=== PATIENT | female | born 1990 | race American Indian/Alaskan Native ===

== ENCOUNTER 2017-10-27 20:01 | Emergency (ER) | payer MEDICAID ==
[2017-10-27 21:18] LABS: Basophils % (Auto) 0.3 % (0.0-1.8); Eosinophils % (Auto) 3.6 % (0.0-4.3); Hematocrit 34.1 % (30.3-42.9); Hemoglobin 10.5 gm/dl (10.1-14.3); Mean Corpuscular HGB Conc 31 % (30-34); Platelet Count 281 K/mm3 (140-440); Red Blood Count 5.03 M/mm3 (3.65-5.03); Red Cell Distribution Width 19.6 % (13.2-15.2); White Blood Count 7.3 K/mm3 (4.5-11.0)
[2017-10-27 21:24] LABS: Mean Corpuscular Volume 68 fl (79-97)
[2017-10-27 21:25] LABS: Mean Corpuscular Hemoglobin 21 pg (28-32)
[2017-10-27 21:28] LABS: Anion Gap 15 mmol/L; BUN/Creatinine Ratio 13; Blood Urea Nitrogen 8 mg/dL (7-17); Carbon Dioxide 27 mmol/L (22-30); Chloride 101.9 mmol/L (98-107); Glucose 93 mg/dL (65-100); Potassium 4.3 mmol/L (3.6-5.0); Sodium 140 mmol/L (137-145)
[2017-10-27 21:40] LABS: Bilirubin,Urine NEG (Negative); Blood,Urine NEG (Negative); Ketones,Urine NEG (Negative); Leukocyte Esterase,Urine TR (Negative); Mucus,Urine FEW /HPF; Nitrite,Urine NEG (Negative); Protein,Urine <15 mg/dL mg/dL (Negative); Urobilinogen,Urine < 2.0 mg/dL (<2.0)
--- NOTE | 2017-10-28 00:53 | XRay Report ---
FINAL REPORT EXAM: XR CXR CLINICAL INDICATIONS: CP WHEN COUGHING FINDINGS: Frontal and lateral views the chest were acquired. The heart is mildly large. There is mild prominence of perihilar markings which could represent mild pulmonary edema, viral pneumonitis or bronchitis. There is no consolidative pulmonary infiltrate. There is no pneumothorax. IMPRESSION: CARDIOMEGALY PROMINENT PERIHILAR MARKINGS WHICH COULD REPRESENT PULMONARY EDEMA, VIRAL PNEUMONITIS OR BRONCHITIS
--- NOTE | 2017-10-28 06:41 | Emergency Department Report ---
ED General Adult HPI - General Chief complaint: Chest Pain Stated complaint: COUGH; CP Time Seen by Provider: 10/28/17 06:27 Source: patient Mode of arrival: Ambulatory Limitations: No Limitations - History of Present Illness Initial comments: Patient states "I have a cold". She decided nonproductive cough for the past few days. She does not complain of chest pain. She does not complain of leg pain or swelling. Her cough is nonproductive. She denies fever or chills. She is taking Benadryl for her symptoms. She denies any previous history of cardiac problems hypertension. She's had no recent travel. -: Gradual, days(s) Improves with: none Worsens with: none Associated Symptoms: denies other symptoms Treatments Prior to Arrival: none (patient denies chest pain completely) - Related Data Home Medications Medication Instructions Recorded Confirmed Last Taken Pnv,Calcium 72/Iron/Folic Acid 1 each PO DAILY 06/28/16 06/28/16 07/05/16 09:00 [Preplus Ca-Fe 27 mg-FA 1 mg Tb] Previous Rx's Medication Instructions Recorded Last Taken Type oxyCODONE /ACETAMINOPHEN [Percocet 1 tab PO Q6HR PRN #40 tablet 07/05/16 Unknown Rx 5/325] Docusate Sodium [Colace] 100 mg PO BID PRN #60 capsule 07/07/16 Unknown Rx Ibuprofen [Motrin] 800 mg PO Q8HR PRN #60 tablet 07/07/16 Unknown Rx Azithromycin [Zithromax Z-NOREEN] 250 mg PO DAILY #6 tablet 10/28/17 Unknown Rx Benzonatate [Tessalon Perles] 100 mg PO Q8HR PRN #10 capsule 10/28/17 Unknown Rx Allergies Allergy/AdvReac Type Severity Reaction Status Date / Time No Known Allergies Allergy Verified 05/17/16 20:56 ED Review of Systems ROS: Stated complaint: COUGH; CP Other details as noted in HPI Constitutional: denies: chills, fever Eyes: denies: eye pain, eye discharge, vision change ENT: denies: ear pain, throat pain Respiratory: cough ("I have a cold"). denies: shortness of breath, SOB with exertion (no dyspnea at all), wheezing Cardiovascular: denies: chest pain, palpitations Endocrine: no symptoms reported Gastrointestinal: denies: abdominal pain, nausea, diarrhea Genitourinary: denies: urgency, dysuria, discharge Musculoskeletal: denies: back pain, joint swelling, arthralgia Skin: denies: rash, lesions Neurological: denies: headache, weakness, paresthesias Psychiatric: denies: anxiety, depression Hematological/Lymphatic: denies: easy bleeding, easy bruising ED Past Medical Hx - Past Medical History Previous Medical History?: No Hx Hypertension: No Hx Congestive Heart Failure: No Hx Diabetes: No Hx Deep Vein Thrombosis: No Hx Renal Disease: No Hx Sickle Cell Disease: No Hx Seizures: No Hx Asthma: No Hx COPD: No Hx HIV: No - Surgical History Past Surgical History?: Yes Additional Surgical History: c sect - Social History Smoking Status: Never Smoker Substance Use Type: None - Medications Home Medications: Home Medications Medication Instructions Recorded Confirmed Last Taken Type Pnv,Calcium 72/Iron/Folic Acid 1 each PO DAILY 06/28/16 06/28/16 07/05/16 09:00 History [Preplus Ca-Fe 27 mg-FA 1 mg Tb] oxyCODONE /ACETAMINOPHEN [Percocet 1 tab PO Q6HR PRN #40 tablet 07/05/16 Unknown Rx 5/325] Docusate Sodium [Colace] 100 mg PO BID PRN #60 capsule 07/07/16 Unknown Rx Ibuprofen [Motrin] 800 mg PO Q8HR PRN #60 tablet 07/07/16 Unknown Rx Azithromycin [Zithromax Z-NOREEN] 250 mg PO DAILY #6 tablet 10/28/17 Unknown Rx Benzonatate [Tessalon Perles] 100 mg PO Q8HR PRN #10 capsule 10/28/17 Unknown Rx ED Physical Exam - General Limitations: No Limitations General appearance: alert, in no apparent distress - Head Head exam: Present: atraumatic, normocephalic - Eye Eye exam: Present: normal appearance, PERRL, EOMI. Absent: scleral icterus - ENT ENT exam: Present: mucous membranes moist - Neck Neck exam: Present: normal inspection - Respiratory Respiratory exam: Present: normal lung sounds bilaterally. Absent: respiratory distress - Cardiovascular Cardiovascular Exam: Present: regular rate, normal rhythm. Absent: systolic murmur, diastolic murmur, rubs, gallop - GI/Abdominal GI/Abdominal exam: Present: soft, normal bowel sounds. Absent: distended, tenderness, guarding, rebound - Extremities Exam Extremities exam: Present: normal inspection, full ROM, normal capillary refill. Absent: tenderness, pedal edema, joint swelling, calf tenderness - Back Exam Back exam: Present: normal inspection - Neurological Exam Neurological exam: Present: alert, oriented X3, CN II-XII intact. Absent: motor sensory deficit - Psychiatric Psychiatric exam: Present: normal affect, normal mood - Skin Skin exam: Present: warm, dry, intact, normal color. Absent: rash ED Course Vital Signs 10/27/17 10/28/17 20:18 01:56 Temperature 98.1 F 99.1 F Pulse Rate 100 H 100 H Respiratory 20 18 Rate Blood Pressure 151/88 121/68 O2 Sat by Pulse 98 99 Oximetry - Reevaluation(s) Reevaluation #1: This patient had an extensive workup that is negative. She had an EKG which was essentially normal. A chest x-ray had showed nonspecific changes. I do not think there is anything to suggest cardiomegaly or CHF. I disagree with the radiologist's differential diagnosis based on this x-ray which is a hypoinflated film. 10/28/17 06:44 ED Medical Decision Making - Lab Data Result diagrams: 10/27/17 20:42 10/27/17 20:42 Laboratory Results - last 24 hr 10/27/17 10/27/17 10/27/17 20:42 20:42 20:42 WBC 7.3 RBC 5.03 Hgb 10.5 Hct 34.1 MCV 68 L MCH 21 L MCHC 31 RDW 19.6 H Plt Count 281 Lymph % (Auto) 42.3 H Jenkins % (Auto) 7.8 H Eos % (Auto) 3.6 Baso % (Auto) 0.3 Lymph # 3.1 Jenkins # 0.6 Eos # 0.3 Baso # 0.0 Seg Neutrophils % 46.0 Seg Neutrophils # 3.4 Sodium 140 Potassium 4.3 Chloride 101.9 Carbon Dioxide 27 Anion Gap 15 BUN 8 Creatinine 0.6 L Estimated GFR > 60 BUN/Creatinine Ratio 13 Glucose 93 Calcium 9.0 Troponin T < 0.010 HCG, Qual Negative Urine Color Urine Turbidity Urine pH Ur Specific [place] Urine Protein Urine Glucose (UA) Urine Ketones Urine Blood Urine Nitrite Ur Reducing Substances Urine Bilirubin Urine Ictotest Urine Urobilinogen Ur Leukocyte Esterase Urine WBC (Auto) Urine RBC (Auto) U Epithel Cells (Auto) Urine Mucus Urine HCG, Qual 10/27/17 10/27/17 10/28/17 21:06 23:16 02:16 WBC RBC Hgb Hct MCV MCH MCHC RDW Plt Count Lymph % (Auto) Jenkins % (Auto) Eos % (Auto) Baso % (Auto) Lymph # Jenkins # Eos # Baso # Seg Neutrophils % Seg Neutrophils # Sodium Potassium Chloride Carbon Dioxide Anion Gap BUN Creatinine Estimated GFR BUN/Creatinine Ratio Glucose Calcium Troponin T < 0.010 < 0.010 HCG, Qual Urine Color Yellow Urine Turbidity Clear Urine pH 6.0 Ur Specific [place] 1.011 Urine Protein <15 mg/dl Urine Glucose (UA) Neg Urine Ketones Neg Urine Blood Neg Urine Nitrite Neg Ur Reducing Substances Not Reportable Urine Bilirubin Neg Urine Ictotest Not Reportable Urine Urobilinogen < 2.0 Ur Leukocyte Esterase Tr Urine WBC (Auto) 3.0 Urine RBC (Auto) 2.0 U Epithel Cells (Auto) 9.0 Urine Mucus Few Urine HCG, Qual Negative - EKG Data -: EKG Interpreted by Me EKG shows normal: sinus rhythm, axis, intervals, QRS complexes, ST-T waves Rate: normal - EKG Data Interpretation: normal EKG Critical care attestation.: If time is entered above; I have spent that time in minutes in the direct care of this critically ill patient, excluding procedure time. ED Disposition Clinical Impression: Upper respiratory infection Qualifiers: URI type: unspecified viral URI Qualified Code(s): J06.9 - Acute upper respiratory infection, unspecified; B97.89 - Other viral agents as the cause of diseases classified elsewhere; B97.89 - Other viral agents as the cause of diseases classified elsewhere Disposition: DC-01 TO HOME OR SELFCARE Is pt being admited?: No Does the pt Need Aspirin: No Condition: Stable Instructions: Acute Bronchitis (ED) Additional Instructions: Follow-up with your primary care provider. Return any acute change or worsening symptoms Prescriptions: Azithromycin [Zithromax Z-NOREEN] 250 mg PO DAILY #6 tablet Benzonatate [Tessalon Perles] 100 mg PO Q8HR PRN #10 capsule PRN Reason: Cough Referrals: ANDREW MEAD, [facility] [Primary Care Provider] - 3-5 Days Time of Disposition: 06:45
[2017-10-28 07:00] VITALS: BP 118/69
== END 2017-10-28 07:00 | disposition home or self-care (01) ==
LOC: ED 20:01
DX: J06.9 Acute upper respiratory infection, unspecified (principal); B97.89 Other viral agents as the cause of diseases classified elsewhere
CPT/HCPCS: 36415; 71020; 80048; 81001; 81025; 84484; 84703; 85025; 93005; 93010

== ENCOUNTER 2019-03-28 09:20 | Emergency (ER) | payer MEDICAID ==
[2019-03-28 09:26] VITALS: BP 146/88
--- NOTE | 2019-03-28 10:26 | Emergency Department Report ---
ED General Adult HPI - General Chief complaint: Extremity Problem,Nontraumatic Stated complaint: RT HEAL OYHANA/PAIN Time Seen by Provider: 03/28/19 10:06 Source: patient Mode of arrival: Ambulatory Limitations: No Limitations - History of Present Illness Initial comments: Patient is 28 years old female with no significant past medical history. Patient presented to the ER complaining of bilateral heel pain. 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 Patient stated that she followed by foot doctor for which she received injection. Patient denied any recent injury or trauma. No fever. - Related Data Home Medications Medication Instructions Recorded Confirmed Last Taken Pnv,Calcium 72/Iron/Folic Acid 1 each PO DAILY 06/28/16 06/28/16 07/05/16 09:00 [Preplus Ca-Fe 27 mg-FA 1 mg Tb] Previous Rx's Medication Instructions Recorded Last Taken Type oxyCODONE /ACETAMINOPHEN [Percocet 1 tab PO Q6HR PRN #40 tablet 07/05/16 Unknown Rx 5/325] Docusate Sodium [Colace] 100 mg PO BID PRN #60 capsule 07/07/16 Unknown Rx Ibuprofen [Motrin] 800 mg PO Q8HR PRN #60 tablet 07/07/16 Unknown Rx Azithromycin [Zithromax Z-NOREEN] 250 mg PO DAILY #6 tablet 10/28/17 Unknown Rx Benzonatate [Tessalon Perles] 100 mg PO Q8HR PRN #10 capsule 10/28/17 Unknown Rx Allergies Allergy/AdvReac Type Severity Reaction Status Date / Time No Known Allergies Allergy Verified 03/28/19 09:26 ED Review of Systems ROS: Stated complaint: RT HEAL YOHANA/PAIN Other details as noted in HPI Comment: All other systems reviewed and negative Constitutional: denies: chills, fever Respiratory: denies: cough ED Past Medical Hx - Past Medical History Previous Medical History?: Yes Hx Hypertension: Yes Hx Congestive Heart Failure: No Hx Diabetes: No Hx Deep Vein Thrombosis: No Hx Renal Disease: No Hx Sickle Cell Disease: No Hx Arthritis: Yes Hx Seizures: No Hx Asthma: No Hx COPD: No Hx HIV: No - Surgical History Past Surgical History?: Yes Additional Surgical History: c sect - Social History Smoking Status: Never Smoker Substance Use Type: None - Medications Home Medications: Home Medications Medication Instructions Recorded Confirmed Last Taken Type Pnv,Calcium 72/Iron/Folic Acid 1 each PO DAILY 06/28/16 06/28/16 07/05/16 09:00 History [Preplus Ca-Fe 27 mg-FA 1 mg Tb] oxyCODONE /ACETAMINOPHEN [Percocet 1 tab PO Q6HR PRN #40 tablet 07/05/16 Unknown Rx 5/325] Docusate Sodium [Colace] 100 mg PO BID PRN #60 capsule 07/07/16 Unknown Rx Ibuprofen [Motrin] 800 mg PO Q8HR PRN #60 tablet 07/07/16 Unknown Rx Azithromycin [Zithromax Z-NOREEN] 250 mg PO DAILY #6 tablet 10/28/17 Unknown Rx Benzonatate [Tessalon Perles] 100 mg PO Q8HR PRN #10 capsule 10/28/17 Unknown Rx ED Physical Exam - General Limitations: No Limitations General appearance: alert, in no apparent distress - Extremities Exam Extremities exam: Present: normal inspection, full ROM, normal capillary refill. Absent: tenderness, pedal edema, joint swelling, calf tenderness ED Course Vital Signs 03/28/19 09:25 Temperature 98 F Pulse Rate 83 Respiratory 20 Rate Blood Pressure 146/88 O2 Sat by Pulse 100 Oximetry Critical care attestation.: If time is entered above; I have spent that time in minutes in the direct care of this critically ill patient, excluding procedure time. ED Disposition Clinical Impression: Plantar fasciitis Disposition: DC-01 TO HOME OR SELFCARE Is pt being admited?: No Condition: Stable Instructions: Plantar Fasciitis (ED) Referrals: ARIEL COMBS [Other] - 3-5 Days
== END 2019-03-28 10:33 | disposition home or self-care (01) ==
LOC: ED 09:20
DX: M72.2 Plantar fascial fibromatosis (principal); I10 Essential (primary) hypertension; M19.90 Unspecified osteoarthritis, unspecified site
CPT/HCPCS: 99282

== ENCOUNTER 2021-06-14 11:00 | Observation (INO) | payer MEDICAID ==
[2021-06-14 13:01] LABS: Alanine Aminotransferase 307 units/L (7-56); Albumin 4.1 g/dL (3.9-5); BUN/Creatinine Ratio 9; Basophils % (Auto) 0.2 % (0.0-1.8); Blood Urea Nitrogen 7 mg/dL (7-17); Calcium 8.9 mg/dL (8.4-10.2); Eosinophils # (Auto) 0.2 K/mm3 (0.0-0.4); Hematocrit 35.8 % (30.3-42.9); Hemoglobin 11.3 gm/dl (10.1-14.3); Hemolysis Index 1; Lymphocytes # (Auto) 3.1 K/mm3 (1.2-5.4); Lymphocytes % (Auto) 42.4 % (13.4-35.0); Mean Corpuscular HGB Conc 32 % (30-34); Monocytes # (Auto) 0.5 K/mm3 (0.0-0.8); Platelet Count 326 K/mm3 (140-440); Red Blood Count 5.17 M/mm3 (3.65-5.03)
[2021-06-14 13:02] LABS: Mean Corpuscular Volume 69 fl (79-97); Red Cell Distribution Width 20.3 % (13.2-15.2)
[2021-06-14 13:06] LABS: Bilirubin,Urine SM (Negative); Blood,Urine NEG (Negative); Color,Urine Amber (Yellow); Mucus,Urine 3+ /HPF
[2021-06-14 13:10] LABS: Ictotest,Urine Positive (Negative)
[2021-06-14] MEDS ORDERED: MORPHINE 4 MG/1 ML INJ IV ONE ×2 (13:33→16:00)
[2021-06-14] MEDS ORDERED: SODIUM CHLORIDE 0.9% 1000 ML 1,000 ML IV ONE (13:33)
[2021-06-14] MEDS ORDERED: ONDANSETRON 4 MG/2 ML INJ IV ONE ×2 (13:33→16:00)
[2021-06-14 13:49] LABS: HCG Qualitative,Urine Negative (Negative)
--- NOTE | 2021-06-14 15:56 | Ultrasound Report ---
ULTRASOUND ABDOMEN, COMPLETE INDICATION: Abdominal pain elevated LFTs. COMPARISON: No relevant prior imaging study available. FINDINGS: Pancreas: No significant abnormality. Abdominal Aorta: No significant abnormality. IVC: No significant abnormality. Liver: The liver measures 17.9 cm in length. The liver is mildly enlarged but no parenchymal disease or focal mass is appreciated. Normal hepatopedal blood flow in the main portal vein. Gallbladder: The gallbladder is contracted. There is a shadowing echogenic complex in the gallbladder fossa. This may represent a contracted gallbladder containing stones.. Bile ducts: No significant abnormality. Common bile duct measures 4.0 mm. Kidneys: Right: 11.9 cm in length. No significant abnormality. Left: 12.7 cm in length. No signif icant abnormality. Spleen: No significant abnormality. The spleen measures 10.2 cm. Free fluid: None. Additional Findings: None. IMPRESSION: Mild hepatomegaly. No obvious parenchymal disease or mass. A normal gallbladder is not identified. There is a shadowing echogenic complex in the gallbladder fos sa which could represent a contracted gallbladder full of stones. Signer Name: Rey Hernandez Jr, MD Signed: 06/14/2021 3:52 PM Workstation Name: [id number]
--- NOTE | 2021-06-14 16:18 | History and Physical Report ---
History of Present Illness Chief complaint: I am having abdominal pain History of present illness: 31 YO Female with Cholelithiasis, Obesity Hypoventilation Syndrome, SMO presents to ED for evaluation. Patient reports "I am having abdominal pain". Patient states that she has experienced abdominal pain over the past 1 day with persistent symptoms over the same timeframe. Patient states that pain is 7/10, constant, localized to the right upper quadrant, associated with nausea, associated with multiple episodes of vomiting. Patient acknowledges decreased oral intake due to inability to keep down liquids and solids. Patient transported to [facility] via private vehicle for further care and evaluation of the aforementioned symptoms. The patient was seen and evaluated in the emergency department. All lab and imaging studies reviewed. Patient underwent abdominal ultrasound and was found to have significant gallstone disease with clinical symptoms consistent with symptomatic cholelithiasis. Patient placed in o bservation status and admitted to surgical floor. Surgical team consulted in ED. Patient is pending surgical intervention as per surgical team. Patient denies fever, chills, chest pain, palpitation, productive cough, skin rash, recent contact, or known exposure to COVID-19. No prior admission for review. No medication listed at time of admission for reconciliation. Past History Past Medical History: other (See HPI) Past Surgical History: Social history: single. denies: smoking, alcohol abuse, prescription drug abuse Family history: diabetes, hypertension Medications and Allergies Allergies Allergy/AdvReac Type Severity Reaction Status Date / Time No Known Allergies Allergy Verified 03/28/19 09:26 Home Medications Medication Instructions Recorded Confirmed Last Taken Type Pnv,Calcium 72/Iron/Folic Acid 1 each PO DAILY 06/28/16 06/28/16 07/05/16 09:00 History [Preplus Ca-Fe 27 mg-FA 1 mg Tb] oxyCODONE /ACETAMINOPHEN [Percocet 1 tab PO Q6HR PRN #40 tablet 07/05/16 Unknown Rx 5/325] Docusate Sodium [Colace] 100 mg PO BID PRN #60 capsule 07/07/16 Unknown Rx Ibuprofen [Motrin] 800 mg PO Q8HR PRN #60 tablet 07/07/16 Unknown Rx Azithromycin [Zithromax Z-NOREEN] 250 mg PO DAILY #6 tablet 10/28/17 Unknown Rx Benzonatate [Tessalon Perles] 100 mg PO Q8HR PRN #10 capsule 10/28/17 Unknown Rx Naproxen [Naprosyn] 500 mg PO BID #14 tablet 03/28/19 Unknown Rx Review of Systems Constitutional: no weight loss, no fever, no chills, no fatigue, no weakness, no malaise Ears, nose, mouth and throat: no ear pain, no ear discharge, no decreased hearing, no nose pain, no nasal discharge Breasts: no change in shape, no swelling, no mass Cardiovascular: no chest pain, no orthopnea, no palpitations, no rapid/irregular heart beat, no edema, no syncope Respiratory: no cough with sputum, no hemoptysis, no shortness of breath, no dyspnea on exertion Gastrointestinal: abdominal pain, nausea, vomiting, no hematemesis, no coffee ground emesis, no BRBPR, no melena, no hematochezia, no loss of appetite Genitourinary Female: no pelvic pain, no flank pain, no dysuria, no urinary frequency, no urgency Rectal: no pain, no incontinence, no bleeding Musculoskeletal: no neck stiffness, no neck pain, no shooting arm pain, no low back pain Integumentary: no rash, no pruritis, no redness, no sores, no wounds, no jaundice Neurological: no paralysis, no weakness, no parathesias, no numbness, no tingling, no seizures, no syncope, no tremors, no ataxia Psychiatric: no anxiety, no memory loss, no sleep disturbances, no insomnia, no change in appetite, no change in libido, no suicidal ideation, no hallucinations Endocrine: no cold intolerance, no heat intolerance, no polyphagia, no excessive thirst Hematologic/Lymphatic: no easy bruising, no easy bleeding, no lymphadenopathy Allergic/Immunologic: no urticaria, no allergic rhinitis, no wheezing, no persistent infections, no anaphylaxis Exam - Constitutional Vitals: Temp Pulse Resp BP Pulse Ox 98.6 F 62 16 149/79 100 06/14/21 11:27 06/14/21 11:27 06/14/21 15:52 06/14/21 11:27 06/14/21 11:27 General appearance: Present: mild distress, obese - EENT Eyes: Present: PERRL ENT: hearing intact, clear oral mucosa - Neck Neck: Present: supple, normal ROM - Respiratory Respiratory effort: normal Respiratory: bilateral: CTA - Cardiovascular Heart Sounds: Present: S1 & S2. Absent: rub, click - Extremities Extremities: pulses symmetrical, No edema Peripheral Pulses: within normal limits - Abdominal General gastrointestinal: Present: soft, tender, normal bowel sounds Localized gastrointestinal: tender: RUQ Female genitourinary: Present: normal - Integumentary Integumentary: Present: clear, warm, dry - Musculoskeletal Musculoskeletal: gait normal, strength equal bilaterally - Psychiatric Psychiatric: appropriate mood/affect, intact judgment & insight - Neurologic Neurologic: CNII-XII intact, moves all extremities Results - Labs CBC & Chem 7: 06/14/21 12:20 06/14/21 12:20 Labs: Abnormal lab results 06/14/21 06/14/21 Range/Units 12:20 12:20 RBC 5.17 H (3.65-5.03) M/mm3 MCV 69 L (79-97) fl MCH 22 L (28-32) pg RDW 20.3 H (13.2-15.2) % Lymph % (Auto) 42.4 H (13.4-35.0) % Total Bilirubin 2.00 H (0.1-1.2) mg/dL AST 394 H (5-40) units/L ALT 307 H (7-56) units/L Assessment and Plan - Patient Problems (1) Symptomatic cholelithiasis Current Visit: Yes Status: Acute Plan to address problem: Ultrasound abdomen, surgical team consulted in ED, MRCP as per surgical team. Surgical intervention as per surgical team, pain control, bowel rest, IV fluid resuscitation therapy, supportive care. (2) Obesity hypoventilation syndrome Current Visit: Yes Status: Acute Plan to address problem: Balanced diet, increase physical activity at discharge, outpatient pulmonary follow-up for sleep study, noninvasive positive pressure ventilation as clinically indicated. (3) Morbid obesity with BMI of 50.0-59.9, adult Current Visit: Yes Status: Acute Plan to address problem: Balanced diet, increase physical activity discharge, outpatient pulmonary follow-up for sleep study (4) DVT prophylaxis Current Visit: Yes Status: Acute Plan to address problem: SCD to bilateral lower extremities while in bed, patient is ambulatory
[2021-06-14] MEDS ORDERED: oxyCODONE /ACETAMINOPHEN 5-325MG TAB PO PRN (16:19)
[2021-06-14] MEDS ORDERED: HYDROmorphone 1 MG/1 ML INJ IV PRN (16:19)
[2021-06-14] MEDS ORDERED: ONDANSETRON 4 MG/2 ML INJ IV PRN (16:19)
[2021-06-14] MEDS ORDERED: ALBUTEROL 2.5 MG/3 ML NEBU IH PRN (16:19)
[2021-06-14] MEDS ORDERED: ACETAMINOPHEN 325 MG TAB PO PRN (16:19)
[2021-06-14] MEDS ORDERED: BENZONATATE 100 MG CAP PO PRN (16:20)
[2021-06-14] MEDS ORDERED: DOCUSATE SODIUM 100 MG CAP PO PRN (16:20)
--- NOTE | 2021-06-14 16:39 | Emergency Department Report ---
ED Abdominal Pain HPI - General Chief Complaint: Abdominal Pain Stated Complaint: GALBLADDER PAIN Time Seen by Provider: 06/14/21 13:30 Source: patient Mode of arrival: Ambulatory Limitations: No Limitations - History of Present Illness Initial Comments: This is a 31-year-old female nontoxic, well nourished in appearance, no acute signs of distress presents to the ED with c/o of nausea and vomiting and abdominal pain several days. Patient describes vomiting as food content and yellow gastric acid. Patient describes abdominal pain as cramping and aching with level of 8/10 to right upper abdomen area with radiation to right flank. Patient denies chest pain, short of breath, fever, hemoptysis, blood in stool, chills, headache, stiff neck, numbness or tingling. Patient denies any diarrhea or constipation. Denies any blood in stool. Patient denies any recent travels. She denies any allergies. MD Complaint: abdominal pain -: days(s) Location: RUQ Radiation: R flank Migration to: no migration Severity: mild Severity scale (0 -10): 8 Quality: cramping, aching Consistency: constant Improves With: nothing Worsens With: nothing Associated Symptoms: nausea, vomiting. denies: diarrhea, fever, chills, constipation, dysuria, hematemesis, hematochezia, melena, hematuria, anorexia, syncope - Related Data Home Medications Medication Instructions Recorded Confirmed Last Taken Pnv,Calcium 72/Iron/Folic Acid 1 each PO DAILY 06/28/16 06/28/16 07/05/16 09:00 [Preplus Ca-Fe 27 mg-FA 1 mg Tb] Previous Rx's Medication Instructions Recorded Last Taken Type oxyCODONE /ACETAMINOPHEN [Percocet 1 tab PO Q6HR PRN #40 tablet 07/05/16 Unknown Rx 5/325] Docusate Sodium [Colace] 100 mg PO BID PRN #60 capsule 07/07/16 Unknown Rx Ibuprofen [Motrin] 800 mg PO Q8HR PRN #60 tablet 07/07/16 Unknown Rx Azithromycin [Zithromax Z-NOREEN] 250 mg PO DAILY #6 tablet 10/28/17 Unknown Rx Benzonatate [Tessalon Perles] 100 mg PO Q8HR PRN #10 capsule 10/28/17 Unknown Rx Naproxen [Naprosyn] 500 mg PO BID #14 tablet 03/28/19 Unknown Rx Allergies Allergy/AdvReac Type Severity Reaction Status Date / Time No Known Allergies Allergy Verified 03/28/19 09:26 ED Review of Systems ROS: Stated complaint: GALBLADDER PAIN Other details as noted in HPI Comment: All other systems reviewed and negative Constitutional: denies: chills, fever Eyes: denies: eye pain, eye discharge, vision change ENT: denies: ear pain, throat pain Respiratory: denies: cough, shortness of breath, wheezing Cardiovascular: denies: chest pain, palpitations Endocrine: no symptoms reported Gastrointestinal: abdominal pain, nausea, vomiting. denies: diarrhea, constipation, hematemesis, melena, hematochezia Genitourinary: denies: urgency, dysuria, discharge Musculoskeletal: denies: back pain, joint swelling, arthralgia Skin: denies: rash, lesions Neurological: denies: headache, weakness, paresthesias Psychiatric: denies: anxiety, depression Hematological/Lymphatic: denies: easy bleeding, easy bruising ED Past Medical Hx - Past Medical History Previous Medical History?: Yes Hx Hypertension: Yes Hx Congestive Heart Failure: No Hx Diabetes: No Hx Deep Vein Thrombosis: No Hx Renal Disease: No Hx Sickle Cell Disease: No Hx Arthritis: Yes Hx Seizures: No Hx Asthma: No Hx COPD: No Hx HIV: No - Surgical History Past Surgical History?: Yes Additional Surgical History: c sect - Social History Smoking Status: Never Smoker Substance Use Type: None - Medications Home Medications: Home Medications Medication Instructions Recorded Confirmed Last Taken Type Pnv,Calcium 72/Iron/Folic Acid 1 each PO DAILY 06/28/16 06/28/16 07/05/16 09:00 History [Preplus Ca-Fe 27 mg-FA 1 mg Tb] oxyCODONE /ACETAMINOPHEN [Percocet 1 tab PO Q6HR PRN #40 tablet 07/05/16 Unknown Rx 5/325] Docusate Sodium [Colace] 100 mg PO BID PRN #60 capsule 07/07/16 Unknown Rx Ibuprofen [Motrin] 800 mg PO Q8HR PRN #60 tablet 07/07/16 Unknown Rx Azithromycin [Zithromax Z-NOREEN] 250 mg PO DAILY #6 tablet 10/28/17 Unknown Rx Benzonatate [Tessalon Perles] 100 mg PO Q8HR PRN #10 capsule 10/28/17 Unknown Rx Naproxen [Naprosyn] 500 mg PO BID #14 tablet 03/28/19 Unknown Rx ED Physical Exam - General Limitations: No Limitations General appearance: alert, in no apparent distress - Head Head exam: Present: atraumatic, normocephalic - Eye Eye exam: Present: normal appearance - Neck Neck exam: Present: normal inspection, full ROM. Absent: lymphadenopathy - Respiratory Respiratory exam: Present: normal lung sounds bilaterally. Absent: respiratory distress, wheezes, rales, rhonchi, stridor, chest wall tenderness, accessory muscle use, decreased breath sounds, prolonged expiratory - Cardiovascular Cardiovascular Exam: Present: regular rate, normal rhythm, normal heart sounds. Absent: bradycardia, tachycardia, irregular rhythm, systolic murmur, diastolic murmur, rubs, gallop - GI/Abdominal GI/Abdominal exam: Present: soft, tenderness (RUQ), normal bowel sounds. Absent: distended, guarding, rebound, rigid, diminished bowel sounds - Extremities Exam Extremities exam: Present: normal inspection, full ROM - Back Exam Back exam: Present: normal inspection, full ROM. Absent: tenderness, CVA tenderness (R), CVA tenderness (L), muscle spasm, paraspinal tenderness, vertebral tenderness, rash noted - Neurological Exam Neurological exam: Present: alert, oriented X3, normal gait - Psychiatric Psychiatric exam: Present: normal affect, normal mood - Skin Skin exam: Present: warm, dry, intact, normal color. Absent: rash ED Course Vital Signs 06/14/21 06/14/21 11:27 15:52 Temperature 98.6 F Pulse Rate 62 Respiratory 18 16 Rate Blood Pressure 149/79 [Right] O2 Sat by Pulse 100 Oximetry - Reevaluation(s) Reevaluation #1: 06/14/21 16:45 Patient is speaking in full sentences with no signs of distress noted. - Consultations Consultation #1: 06/14/21 16:20 Patient has been consulted with Dr. Villa about patient history, physical exam, and labs.imaging results and agrees for admission for MRCP. Consultation #2: 06/14/21 16:28 Patient has been consulted with Dr. Rowe (hospitalist) about patient history, physical exam, and labs/imaging results and accepts patient for admission. ED Medical Decision Making - Lab Data Result diagrams: 06/14/21 12:20 06/14/21 12:20 Lab Results 06/14/21 06/14/21 06/14/21 Range/Units 12:20 12:20 13:31 WBC 7.4 (4.5-11.0) K/mm3 RBC 5.17 H (3.65-5.03) M/mm3 Hgb 11.3 (10.1-14.3) gm/dl Hct 35.8 (30.3-42.9) % MCV 69 L (79-97) fl MCH 22 L (28-32) pg MCHC 32 (30-34) % RDW 20.3 H (13.2-15.2) % Plt Count 326 (140-440) K/mm3 Lymph % (Auto) 42.4 H (13.4-35.0) % Cole % (Auto) 7.0 (0.0-7.3) % Eos % (Auto) 2.0 (0.0-4.3) % Baso % (Auto) 0.2 (0.0-1.8) % Lymph # (Auto) 3.1 (1.2-5.4) K/mm3 Cole # (Auto) 0.5 (0.0-0.8) K/mm3 Eos # (Auto) 0.2 (0.0-0.4) K/mm3 Baso # (Auto) 0.0 (0.0-0.1) K/mm3 Seg Neutrophils % 48.4 (40.0-70.0) % Seg Neutrophils # 3.6 (1.8-7.7) K/mm3 Sodium 138 (137-145) mmol/L Potassium 3.9 (3.6-5.0) mmol/L Chloride 103.1 (98-107) mmol/L Carbon Dioxide 26 (22-30) mmol/L Anion Gap 13 mmol/L BUN 7 (7-17) mg/dL Creatinine 0.8 (0.6-1.2) mg/dL Estimated GFR > 60 ml/min BUN/Creatinine Ratio 9 % Glucose 87 (65-100) mg/dL Calcium 8.9 (8.4-10.2) mg/dL Total Bilirubin 2.00 H (0.1-1.2) mg/dL AST 394 H (5-40) units/L ALT 307 H (7-56) units/L Alkaline Phosphatase 129 (35-129) units/L Total Protein 7.5 (6.3-8.2) g/dL Albumin 4.1 (3.9-5) g/dL Albumin/Globulin Ratio 1.2 % Lipase (13-60) units/L Urine Color (Yellow) Urine Turbidity (Clear) Urine pH (5.0-7.0) Ur Specific [place] (1.003-1.030) Urine Protein (Negative) mg/dL Urine Glucose (UA) (Negative) mg/dL Urine Ketones (Negative) mg/dL Urine Blood (Negative) Urine Nitrite (Negative) Urine Bilirubin (Negative) Urine Ictotest (Negative) Urine Urobilinogen (<2.0) mg/dL Ur Leukocyte Esterase (Negative) Urine WBC (Auto) (0.0-6.0) /HPF Urine RBC (Auto) (0.0-6.0) /HPF U Epithel Cells (Auto) (0-13.0) /HPF Urine Mucus /HPF Urine HCG, Qual Negative (Negative) 06/14/21 06/14/21 Range/Units 13:35 Unknown WBC (4.5-11.0) K/mm3 RBC (3.65-5.03) M/mm3 Hgb (10.1-14.3) gm/dl Hct (30.3-42.9) % MCV (79-97) fl MCH (28-32) pg MCHC (30-34) % RDW (13.2-15.2) % Plt Count (140-440) K/mm3 Lymph % (Auto) (13.4-35.0) % Cole % (Auto) (0.0-7.3) % Eos % (Auto) (0.0-4.3) % Baso % (Auto) (0.0-1.8) % Lymph # (Auto) (1.2-5.4) K/mm3 Cole # (Auto) (0.0-0.8) K/mm3 Eos # (Auto) (0.0-0.4) K/mm3 Baso # (Auto) (0.0-0.1) K/mm3 Seg Neutrophils % (40.0-70.0) % Seg Neutrophils # (1.8-7.7) K/mm3 Sodium (137-145) mmol/L Potassium (3.6-5.0) mmol/L Chloride (98-107) mmol/L Carbon Dioxide (22-30) mmol/L Anion Gap mmol/L BUN (7-17) mg/dL Creatinine (0.6-1.2) mg/dL Estimated GFR ml/min BUN/Creatinine Ratio % Glucose (65-100) mg/dL Calcium (8.4-10.2) mg/dL Total Bilirubin (0.1-1.2) mg/dL AST (5-40) units/L ALT (7-56) units/L Alkaline Phosphatase (35-129) units/L Total Protein (6.3-8.2) g/dL Albumin (3.9-5) g/dL Albumin/Globulin Ratio % Lipase 22 (13-60) units/L Urine Color Alisa (Yellow) Urine Turbidity Slightly-cloudy (Clear) Urine pH 5.0 (5.0-7.0) Ur Specific [place] 1.026 (1.003-1.030) Urine Protein 30 mg/dl (Negative) mg/dL Urine Glucose (UA) Neg (Negative) mg/dL Urine Ketones Neg (Negative) mg/dL Urine Blood Neg (Negative) Urine Nitrite Neg (Negative) Urine Bilirubin Sm (Negative) Urine Ictotest Positive (Negative) Urine Urobilinogen 4.0 (<2.0) mg/dL Ur Leukocyte Esterase Neg (Negative) Urine WBC (Auto) 2.0 (0.0-6.0) /HPF Urine RBC (Auto) 5.0 (0.0-6.0) /HPF U Epithel Cells (Auto) 12.0 (0-13.0) /HPF Urine Mucus 3+ /HPF Urine HCG, Qual (Negative) - Radiology Data [facility] [address] [place] [address] Ultrasound Report Signed Patient: AVERY COLE MR #: [id number] : 1990 Acct:[id number] Age/Sex: 31 / F ADM Date: 06/14/21 Loc: ED Attending Dr: Ordering Physician: RICK JEFFRIES Date of Service: 06/14/21 Procedure(s): US abdomen complete Accession Number(s): [id number] cc: RICK COLINDRES ULTRASOUND ABDOMEN, COMPLETE INDICATION: Abdominal pain elevated LFTs. COMPARISON: No relevant prior imaging study available. FINDINGS: Pancreas: No significant abnormality. Abdominal Aorta: No significant abnormality. IVC: No significant abnormality. Liver: The liver measures 17.9 cm in length. The liver is mildly enlarged but no parenchymal disease or focal mass is appreciated. Normal hepatopedal blood flow in the main portal vein. Gallbladder: The gallbladder is contracted. There is a shadowing echogenic complex in the gallbladder fossa. This may represent a contracted gallbladder containing stones.. Bile ducts: No significant abnormality. Common bile duct measures 4.0 mm. Kidneys: Right: 11.9 cm in length. No significant abnormality. Left: 12.7 cm in length. No significant abnormality. Spleen: No significant abnormality. The spleen measures 10.2 cm. Free fluid: None. Additional Findings: None. IMPRESSION: Mild hepatomegaly. No obvious parenchymal disease or mass. A normal gallbladder is not identified. There is a shadowing echogenic complex in the gallbladder fossa which could represent a contracted gallbladder full of stones. Signer Name: Rey Hernandez Jr, MD Signed: 06/14/2021 3:52 PM Workstation Name: [id number] Transcribed By: TTR Dictated By: REY HERNANDEZ JR, MD Electronically Authenticated By: REY HERNANDEZ JR, MD Signed Date/Time: 06/14/21 155 DD/ 1549 TD/TT: - Medical Decision Making 31-year-old female that presents with hepatomegaly, gallstones and elevated liver function test. Patient is stable and was examined by me. Patient admitted with hospitalist. Patient consulted with general surgery and agrees for MRCP. Patient vital signs are currently stable. Patient pain is under control at this time. At time of admission, the patient does not seem toxic or ill in appearance . No acute signs of distress noted. Patient agrees to admission treatment plan of care. No further questions noted by the patient. Critical care attestation.: If time is entered above; I have spent that time in minutes in the direct care of this critically ill patient, excluding procedure time. ED Disposition Clinical Impression: Gallstones, Hepatomegaly, Elevated liver function tests Disposition: OP ADMIT IP TO THIS HOSP Is pt being admited?: Yes Condition: Stable Instructions: Abdominal Pain (ED)
--- NOTE | 2021-06-14 17:09 | Consultation ---
History of Present Illness Consult date: 06/14/21 Reason for consult: gallstones - History of present illness History of present illness: 31-year-old female presents to the emergency room with 1 day acute onset of right upper quadrant epigastric abdominal pain with nausea and vomiting. Patient has had this pain before, last year she had a work-up and was told she had gallstones. The pain is currently improved but she says that she would like to get it removed this admission. Patient had an ultrasound today that showed a contracted gallbladder full of gallstones with a CBD measurement of 4 mm. Past History Past Surgical History: Social history: denies: smoking Family history: no significant family history Medications and Allergies Allergies Allergy/AdvReac Type Severity Reaction Status Date / Time No Known Allergies Allergy Verified 03/28/19 09:26 Home Medications Medication Instructions Recorded Confirmed Last Taken Type Pnv,Calcium 72/Iron/Folic Acid 1 each PO DAILY 06/28/16 06/28/16 07/05/16 09:00 History [Preplus Ca-Fe 27 mg-FA 1 mg Tb] oxyCODONE /ACETAMINOPHEN [Percocet 1 tab PO Q6HR PRN #40 tablet 07/05/16 Unknown Rx 5/325] Docusate Sodium [Colace] 100 mg PO BID PRN #60 capsule 07/07/16 Unknown Rx Ibuprofen [Motrin] 800 mg PO Q8HR PRN #60 tablet 07/07/16 Unknown Rx Azithromycin [Zithromax Z-NOREEN] 250 mg PO DAILY #6 tablet 10/28/17 Unknown Rx Benzonatate [Tessalon Perles] 100 mg PO Q8HR PRN #10 capsule 10/28/17 Unknown Rx Naproxen [Naprosyn] 500 mg PO BID #14 tablet 03/28/19 Unknown Rx Active Meds: Active Medications Acetaminophen (Acetaminophen 325 Mg Tab) 650 mg PO Q4H PRN PRN Reason: Pain MILD(1-3)/Fever >100.5/VALLE Albuterol (Albuterol 2.5 Mg/3 Ml Nebu) 2.5 mg IH Q4HRT PRN PRN Reason: Shortness Of Breath Benzonatate (Benzonatate 100 Mg Cap) 100 mg PO Q8HR PRN PRN Reason: Cough Docusate Sodium (Docusate Sodium 100 Mg Cap) 100 mg PO BID PRN PRN Reason: Constipation Hydromorphone HCl (Hydromorphone 1 Mg/1 Ml Inj) 0.5 mg IV Q3H PRN PRN Reason: Pain , Severe (7-10) Sodium Chloride (Nacl 0.9% 1000 Ml) 1,000 mls @ 75 mls/hr IV DIRECT DAMARIS Ondansetron HCl (Ondansetron 4 Mg/2 Ml Inj) 4 mg IV Q8H PRN PRN Reason: Nausea And Vomiting Oxycodone/Acetaminophen (Oxycodone /Acetaminophen 5-325mg Tab) 1 tab PO Q12H PRN PRN Reason: Pain, Moderate (4-6) Sodium Chloride (Sodium Chloride 0.9% 10 Ml Flush Syringe) 10 ml IV BID DAMARIS Sodium Chloride (Sodium Chloride 0.9% 10 Ml Flush Syringe) 10 ml IV PRN PRN PRN Reason: LINE FLUSH Review of Systems All systems: negative - Gastrointestinal abdominal pain, nausea, vomiting Exam Vital Signs Temp Pulse Resp BP Pulse Ox 98.6 F 62 18 149/79 100 06/14/21 11:27 06/14/21 11:27 06/14/21 11:27 06/14/21 11:27 06/14/21 11:27 - General physical appearance Positive: well developed, no distress, no pain, obese - Respiratory Positive: normal expansion, normal respiratory effort - Cardiovascular Heart Sounds: Present: S1 & S2 - Extremities Extremity abnormal: edema - Abdomen Abdomen: Present: soft, other (Obese, tender to deep palpation right upper quadrant.). Absent: rebound, guarding Results - Labs 06/14/21 12:20 06/14/21 12:20 Abnormal lab results 06/14/21 06/14/21 Range/Units 12:20 12:20 RBC 5.17 H (3.65-5.03) M/mm3 MCV 69 L (79-97) fl MCH 22 L (28-32) pg RDW 20.3 H (13.2-15.2) % Lymph % (Auto) 42.4 H (13.4-35.0) % Total Bilirubin 2.00 H (0.1-1.2) mg/dL AST 394 H (5-40) units/L ALT 307 H (7-56) units/L Diabetes panel 06/14/21 Range/Units 12:20 Sodium 138 (137-145) mmol/L Potassium 3.9 (3.6-5.0) mmol/L Chloride 103.1 (98-107) mmol/L Carbon Dioxide 26 (22-30) mmol/L BUN 7 (7-17) mg/dL Creatinine 0.8 (0.6-1.2) mg/dL Glucose 87 (65-100) mg/dL Calcium 8.9 (8.4-10.2) mg/dL AST 394 H (5-40) units/L ALT 307 H (7-56) units/L Alkaline Phosphatase 129 (35-129) units/L Total Protein 7.5 (6.3-8.2) g/dL Albumin 4.1 (3.9-5) g/dL Calcium panel 06/14/21 Range/Units 12:20 Calcium 8.9 (8.4-10.2) mg/dL Albumin 4.1 (3.9-5) g/dL Pituitary panel 06/14/21 Range/Units 12:20 Sodium 138 (137-145) mmol/L Potassium 3.9 (3.6-5.0) mmol/L Chloride 103.1 (98-107) mmol/L Carbon Dioxide 26 (22-30) mmol/L BUN 7 (7-17) mg/dL Creatinine 0.8 (0.6-1.2) mg/dL Glucose 87 (65-100) mg/dL Calcium 8.9 (8.4-10.2) mg/dL Adrenal panel 06/14/21 Range/Units 12:20 Sodium 138 (137-145) mmol/L Potassium 3.9 (3.6-5.0) mmol/L Chloride 103.1 (98-107) mmol/L Carbon Dioxide 26 (22-30) mmol/L BUN 7 (7-17) mg/dL Creatinine 0.8 (0.6-1.2) mg/dL Glucose 87 (65-100) mg/dL Calcium 8.9 (8.4-10.2) mg/dL Total Bilirubin 2.00 H (0.1-1.2) mg/dL AST 394 H (5-40) units/L ALT 307 H (7-56) units/L Alkaline Phosphatase 129 (35-129) units/L Total Protein 7.5 (6.3-8.2) g/dL Albumin 4.1 (3.9-5) g/dL - Imaging US - abdomen: report reviewed, image reviewed Assessment and Plan 31-year-old female with abdominal pain nausea vomiting likely due to symptomatic cholelithiasis. Patient is afebrile and stable. Make n.p.o. after midnight with tentative plan to perform lap cholecystectomy tomorrow. Discussed the alternatives to surgery with patient such as behavior lifestyle modification and the potential risk of surgery. Patient continues to desire surgery. We will follow-up with patient in a.m.
[2021-06-15 06:16] LABS: Alanine Aminotransferase 269 units/L (7-56); Albumin 3.8 g/dL (3.9-5); BUN/Creatinine Ratio 8; Blood Urea Nitrogen 6 mg/dL (7-17); Calcium 8.6 mg/dL (8.4-10.2); Hemolysis Index 0
[2021-06-15] MEDS ORDERED: PNV CALCIUM PO SCH (10:00)
[2021-06-15] MEDS ORDERED: IRON PO SCH (10:00)
[2021-06-15] MEDS ORDERED: FOLIC ACID PO SCH (10:00)
[2021-06-15] MEDS ORDERED: [UNRECOGNIZED DRUG - OTHER] PO SCH (10:00)
[2021-06-15] MEDS ORDERED: dexAMETHasone 20 MG/5 ML VIAL ONE (13:30)
[2021-06-15] MEDS ORDERED: BUPIVACAINE/PF (0.5%) 5 MG/1 ML 30 ML VIAL INFILTRATI ONE ×2 (13:39→14:52)
[2021-06-15] MEDS ORDERED: LIDOCAINE 1%/EPINEPHRINE 1:100,000 VIAL (20 ML) INFILTRATI ONE ×2 (13:39→14:52)
[2021-06-15] MEDS ORDERED: ROCURONIUM 50 MG/5 ML INJ IV ONE (13:47)
[2021-06-15] MEDS ORDERED: fentaNYL 100 MCG/2 ML INJ ONE ×2 (13:47→14:34)
[2021-06-15] MEDS ORDERED: LIDOCAINE MPF (2%) 20 MG/1 ML VIAL 5 ML ONE (13:47)
[2021-06-15] MEDS ORDERED: SUCCINYLCHOLINE CHLORIDE 200 MG/10 ML INJ MDV ONE (13:47)
[2021-06-15] MEDS ORDERED: propofoL 200 MG/20 ML VIAL IV ONE ×2 (13:47)
[2021-06-15] MEDS ORDERED: SUGAMMADEX SODIUM 200 MG/2 ML VIAL IV ONE (14:26)
--- NOTE | 2021-06-15 14:37 | Anesthesia Day of Surgery ---
Anesthesia Day of Surgery - Day of Surgery Patient Examined: Yes Patient H&P Reviewed: Yes Patient is NPO: Yes
[2021-06-15] MEDS ORDERED: HYDROmorphone 1 MG/1 ML INJ IV PRN (14:40)
[2021-06-15] MEDS ORDERED: ONDANSETRON 4 MG/2 ML INJ IV PRN (14:40)
--- NOTE | 2021-06-15 14:40 | Anesthesia Consultation ---
Anesthesia Consult and Med Hx Date of service: 06/15/21 - Airway Anesthetic Teeth Evaluation: Chipped ROM Head & Neck: Adequate Mental/Hyoid Distance: Adequate Mallampati Class: Class III Intubation Access Assessment: Probably Good - Pre-Operative Health Status ASA Pre-Surgery Classification: ASA3 Proposed Anesthetic Plan: General - Pulmonary Hx Asthma: No COPD: No Hx Pneumonia: Yes - Cardiovascular System Hx Hypertension: Yes - Central Nervous System Hx Seizures: No Hx Psychiatric Problems: No - Endocrine Hx Renal Disease: No Hx End Stage Renal Disease: No Hx Liver Disease: Yes (Elevated LFTs) Hx Hypothyroidism: No Hx Hyperthyroidism: No - Hematic Hx Anemia: No Hx Sickle Cell Disease: No - Other Systems Hx Alcohol Use: No Hx Obesity: Yes (Morbid)
--- NOTE | 2021-06-15 14:46 | Progress Note ---
Assessment and Plan Assessment and plan: -- Symptomatic cholelithiasis Current Visit: Yes Status: Acute Evaluated by surgeon, scheduled for lap cholecystectomy today Patient n.p.o. status, continue current management --Obesity ;hypoventilation syndrome Current Visit: Yes Status: Acute Plan to address problem: Balanced diet, increase physical activity at discharge, outpatient pulmonary follow-up for sleep study, noninvasive positive pressure ventilation as clinically indicated. -- Morbid obesity with BMI of 50.0-59.9, adult Current Visit: Yes Status: Acute Plan to address problem: Balanced diet, increase physical activity discharge, outpatient pulmonary follow-up for sleep study -- DVT prophylaxis Current Visit: Yes Status: Acute Plan to address problem: SCD to bilateral lower extremities while in bed, patient is ambulatory monitor the patient and adjust the management as needed Plan of care reviewed with the patient and her nurse Possible cholecystectomy today, patient n.p.o. status History Interval history: I have seen and examined the patient at the bedside Patient's chart and medications reviewed Patient admitted with acute abdominal pain Symptomatic cholelithiasis Evaluated by surgeon Patient is n.p.o. status Possible lap cholecystectomy today Vital signs noted Hospitalist Physical - Constitutional Vitals: Temp Pulse Resp BP Pulse Ox 98.6 F 68 18 125/79 98 06/15/21 11:23 06/15/21 11:23 06/15/21 11:23 06/15/21 11:23 06/15/21 11:35 General appearance: Present: mild distress, obese - EENT Eyes: Present: PERRL, EOM intact - Neck Neck: Present: supple, normal ROM - Respiratory Respiratory effort: normal, pursed lips Respiratory: bilateral: diminished, rhonchi, negative: rales, wheezing - Cardiovascular Rhythm: regular Heart Sounds: Present: S1 & S2 - Extremities Extremities: no ischemia, No edema - Abdominal General gastrointestinal: soft, tender (No guarding no rigidity), non-distended, normal bowel sounds - Integumentary Integumentary: Present: clear, warm - Psychiatric Psychiatric: appropriate mood/affect, cooperative - Neurologic Neurologic: CNII-XII intact, moves all extremities Results - Labs CBC & Chem 7: 06/14/21 12:20 06/15/21 04:25 Labs: Laboratory Last Values WBC 7.4 K/mm3 (4.5-11.0) 06/14/21 12:20 RBC 5.17 M/mm3 (3.65-5.03) H 06/14/21 12:20 Hgb 11.3 gm/dl (10.1-14.3) 06/14/21 12:20 Hct 35.8 % (30.3-42.9) 06/14/21 12:20 MCV 69 fl (79-97) L 06/14/21 12:20 MCH 22 pg (28-32) L 06/14/21 12:20 MCHC 32 % (30-34) 06/14/21 12:20 RDW 20.3 % (13.2-15.2) H 06/14/21 12:20 Plt Count 326 K/mm3 (140-440) 06/14/21 12:20 Lymph % (Auto) 42.4 % (13.4-35.0) H 06/14/21 12:20 Collin % (Auto) 7.0 % (0.0-7.3) 06/14/21 12:20 Eos % (Auto) 2.0 % (0.0-4.3) 06/14/21 12:20 Baso % (Auto) 0.2 % (0.0-1.8) 06/14/21 12:20 Lymph # (Auto) 3.1 K/mm3 (1.2-5.4) 06/14/21 12:20 Collin # (Auto) 0.5 K/mm3 (0.0-0.8) 06/14/21 12:20 Eos # (Auto) 0.2 K/mm3 (0.0-0.4) 06/14/21 12:20 Baso # (Auto) 0.0 K/mm3 (0.0-0.1) 06/14/21 12:20 Seg Neutrophils % 48.4 % (40.0-70.0) 06/14/21 12:20 Seg Neutrophils # 3.6 K/mm3 (1.8-7.7) 06/14/21 12:20 Sodium 137 mmol/L (137-145) 06/15/21 04:25 Potassium 3.8 mmol/L (3.6-5.0) 06/15/21 04:25 Chloride 102.3 mmol/L (98-107) 06/15/21 04:25 Carbon Dioxide 25 mmol/L (22-30) 06/15/21 04:25 Anion Gap 14 mmol/L 06/15/21 04:25 BUN 6 mg/dL (7-17) L 06/15/21 04:25 Creatinine 0.8 mg/dL (0.6-1.2) 06/15/21 04:25 Estimated GFR > 60 ml/min 06/15/21 04:25 BUN/Creatinine Ratio 8 % 06/15/21 04:25 Glucose 83 mg/dL (65-100) 06/15/21 04:25 Calcium 8.6 mg/dL (8.4-10.2) 06/15/21 04:25 Total Bilirubin 1.00 mg/dL (0.1-1.2) 06/15/21 04:25 AST 174 units/L (5-40) H 06/15/21 04:25 ALT 269 units/L (7-56) H 06/15/21 04:25 Alkaline Phosphatase 136 units/L (35-129) H 06/15/21 04:25 Total Protein 7.1 g/dL (6.3-8.2) 06/15/21 04:25 Albumin 3.8 g/dL (3.9-5) L 06/15/21 04:25 Albumin/Globulin Ratio 1.2 % 06/15/21 04:25 Lipase 22 units/L (13-60) 06/14/21 13:35 Urine Color Alisa (Yellow) 06/14/21 Unknown Urine Turbidity Slightly-cloudy (Clear) 06/14/21 Unknown Urine pH 5.0 (5.0-7.0) 06/14/21 Unknown Ur Specific [place] 1.026 (1.003-1.030) 06/14/21 Unknown Urine Protein 30 mg/dl mg/dL (Negative) 06/14/21 Unknown Urine Glucose (UA) Neg mg/dL (Negative) 06/14/21 Unknown Urine Ketones Neg mg/dL (Negative) 06/14/21 Unknown Urine Blood Neg (Negative) 06/14/21 Unknown Urine Nitrite Neg (Negative) 06/14/21 Unknown Urine Bilirubin Sm (Negative) 06/14/21 Unknown Urine Ictotest Positive (Negative) 06/14/21 Unknown Urine Urobilinogen 4.0 mg/dL (<2.0) 06/14/21 Unknown Ur Leukocyte Esterase Neg (Negative) 06/14/21 Unknown Urine WBC (Auto) 2.0 /HPF (0.0-6.0) 06/14/21 Unknown Urine RBC (Auto) 5.0 /HPF (0.0-6.0) 06/14/21 Unknown U Epithel Cells (Auto) 12.0 /HPF (0-13.0) 06/14/21 Unknown Urine Mucus 3+ /HPF 06/14/21 Unknown Urine HCG, Qual Negative (Negative) 06/14/21 13:31 Hodgson/IV: Voiding Method Toilet Active Medications - Current Medications Current Medications: Generic Name Dose Route Start Last Admin Trade Name Freq PRN Reason Stop Dose Admin Acetaminophen 650 mg 06/14/21 16:19 06/15/21 04:47 Acetaminophen 325 Mg Tab PO 650 mg Q4H PRN Administration Pain MILD(1-3)/Fever >100.5/VALLE Albuterol 2.5 mg 06/14/21 16:19 Albuterol 2.5 Mg/3 Ml Nebu IH Q4HRT PRN Shortness Of Breath Benzonatate 100 mg 06/14/21 16:20 Benzonatate 100 Mg Cap PO Q8HR PRN Cough Docusate Sodium 100 mg 06/14/21 16:20 Docusate Sodium 100 Mg Cap PO BID PRN Constipation Hydromorphone HCl 0.5 mg 06/14/21 16:19 06/15/21 11:26 Hydromorphone 1 Mg/1 Ml Inj IV 0.5 mg Q3H PRN Administration Pain , Severe (7-10) Hydromorphone HCl 0.25 mg 06/15/21 14:40 Hydromorphone 1 Mg/1 Ml Inj IV 06/15/21 23:00 Q10MIN PRN Pain, Moderate (4-6) Hydromorphone HCl 0.5 mg 06/15/21 14:40 Hydromorphone 1 Mg/1 Ml Inj IV 06/15/21 23:00 Q10MIN PRN Pain , Severe (7-10) Sodium Chloride 1,000 mls @ 75 mls/hr 06/14/21 16:30 Nacl 0.9% 1000 Ml IV DIRECT DAMARIS Ondansetron HCl 4 mg 06/14/21 16:19 Ondansetron 4 Mg/2 Ml Inj IV Q8H PRN Nausea And Vomiting Ondansetron HCl 4 mg 06/15/21 14:40 Ondansetron 4 Mg/2 Ml Inj IV 06/15/21 18:00 ONCE PRN Nausea And Vomiting Oxycodone/Acetaminophen 1 tab 06/14/21 16:19 Oxycodone /Acetaminophen 5-325mg Tab PO Q12H PRN Pain, Moderate (4-6) Sodium Chloride 10 ml 06/14/21 22:00 06/15/21 11:26 Sodium Chloride 0.9% 10 Ml Flush Syringe IV 10 ml BID DAMARIS Administration Sodium Chloride 10 ml 06/14/21 16:19 Sodium Chloride 0.9% 10 Ml Flush Syringe IV PRN PRN LINE FLUSH
[2021-06-15] MEDS ORDERED: SODIUM CHLORIDE 0.9% IRR 1,500 ML BOTTLE IR ONE (14:52)
[2021-06-15] MEDS ORDERED: MINERAL OIL Light (Sterile) 10 ML VIAL TP ONE ×2 (15:02→15:18)
[2021-06-15] MEDS: HYDROmorphone 1 MG/1 ML INJ IV PRN ×3 (16:20→16:40)
--- NOTE | 2021-06-15 16:21 | Operative Report ---
Operative Report Operative Report: Date: 06/15/2021 Procedure Performed: Lap cholecystectomy Primary Surgeon: Anthony Villa MD Assisted by: Sherice Tyler DO Anesthesia: General Pre-Operative Diagnosis: symptomatic cholelithiasis Post-Operative Diagnosis: Same Indications for Procedure: Ms. Martinez is a 31-year-old female presented to the emergency room with a 2-day history of acute right upper quadrant pain nausea vomiting. She had an ultrasound which showed a contracted gallbladder filled with gallstones. She was counseled on alternatives to surgery, and the risk and benefits of performing a laparoscopic cholecystectomy. She signed informed consent. Description of Procedure(s): The patient was brought to the operating room and underwent general anesthesia. The abdomen was prepped and draped in the standard fashion. IV antibiotics were given. A Veress needle was placed via stab in cision left upper quadrant area in the subcostal region. The abdomen insufflated to a pressure of 18 mmHg. After which using Optiview technique a 5 mm trocar was placed just superior to the left of the umbilicus. There was no gross injury to any intra-abdominal structures. For working trochars were placed under direct dilatation. A 12 mm epigastric area, and two 5 mm trochars on the right side. The gallbladder was located and grasped at the fundus and retracted up toward the patient's shoulder. The infundibulum was grasped and retracted laterally. A window was made between the cystic artery and the cystic duct, clearly delineating the two structures. These were clipped with a 5 mm clip community organization director and divided after the critical view was achieved. The peritoneum was incised with hook cautery, and the gallbladder was taken from the liver bed, ensuring hemostatis. The endocatch bag was placed in the abdomen and the gallbladder was then removed from the abdomen. The liver bed was examined and the trocars removed under direct visualization. The insufflation was then terminated. The epigastric trocar site was closed with 2 transfascially 2 sutures using 0 Vicryl using a German Mireles device. The skin incisions were closed using 4-0 Monocryl sutures. All the wounds dressed with Dermabond. The patient tolerated the procedure well, was extubated and taken to the recovery r oom in satisfactory condition. Finding(s): A contracted gallbladder with 1 large stone and several smaller stones Intra-Operative Complications: none Specimens Removed: Gallbladder with stones Estimated Blood Loss: minimal
[2021-06-15] MEDS ORDERED: oxyCODONE /ACETAMINOPHEN 5-325MG TAB PO PRN (17:11)
--- NOTE | 2021-06-15 17:26 | Post Anesthesia Evaluation ---
- Post Anesthesia Evaluation Patient Participated: Yes Airway Patent: Yes Stable Respiratory Function: Yes Nausea/Vomiting: No Temp > 96.8F: Yes Pain Manageable: Yes Adequeate Hydration: Yes Anesthesia Complications: No Block Receding Appropriately: Not Applicable Patient on Ventilator: No
[2021-06-15] MEDS: KETOROLAC 30 MG/1 ML INJ IV SCH ×2 (17:35→23:38)
[2021-06-15] MEDS: SODIUM CHLORIDE 0.9% 1000 ML 1,000 ML IV SCH (17:35)
[2021-06-16] MEDS: KETOROLAC 30 MG/1 ML INJ IV SCH ×2 (06:44→10:53)
[2021-06-16] MEDS: SODIUM CHLORIDE 0.9% 1000 ML 1,000 ML IV SCH (06:45)
[2021-06-16 07:54] LABS: Basophils % (Auto) 0.1 % (0.0-1.8); Hemoglobin 11.4 gm/dl (10.1-14.3); Lymphocytes % (Auto) 19.7 % (13.4-35.0); Mean Corpuscular HGB Conc 33 % (30-34); Monocytes # (Auto) 0.6 K/mm3 (0.0-0.8); Monocytes % (Auto) 5.8 % (0.0-7.3); Platelet Count 325 K/mm3 (140-440); Red Blood Count 5.03 M/mm3 (3.65-5.03); Red Cell Distribution Width 19.8 % (13.2-15.2)
[2021-06-16 07:56] LABS: Mean Corpuscular Volume 70 fl (79-97)
[2021-06-16 07:59] LABS: Alanine Aminotransferase 167 units/L (7-56); Albumin 3.6 g/dL (3.9-5); Blood Urea Nitrogen 8 mg/dL (7-17); Calcium 9.2 mg/dL (8.4-10.2); Hemolysis Index 0
[2021-06-16 08:05] LABS: BUN/Creatinine Ratio 11
[2021-06-16 12:21] VITALS: BP 133/82
--- NOTE | 2021-06-16 13:51 | Progress Note ---
Assessment and Plan POD#1 s/p lap charanjit. Progressing well, afebrile and stable. Pt may be discharged from a gen surg perspective. Follow up in the office in two weeks. Can advance diet as tolerated. Pt is advised to avoid fatty foods. Pt may shower and no heavy lifting for 2 weeks. Subjective Date of service: 06/16/21 Narrative: No acute events overnight. Patient says that her pain is controlled with medication. She denies nausea and vomiting. Objective Vital Signs - 12hr 06/16/21 06/16/21 06/16/21 05:49 07:30 10:00 Temperature 98.3 F 98.8 F Pulse Rate 67 63 Respiratory 18 16 Rate Respiratory 18 Rate [headache] Blood Pressure 146/79 140/76 O2 Sat by Pulse 95 93 Oximetry 06/16/21 06/16/21 06/16/21 10:53 11:00 11:37 Temperature 97.8 F Pulse Rate 68 Respiratory 18 16 Rate Respiratory Rate [headache] Blood Pressure 133/82 O2 Sat by Pulse 98 98 Oximetry - General physical appearance well developed, well nourished, no distress, no pain, obese - Abdomen soft, not rebound, not guarding, not rigid, other - Labs 06/16/21 06:57 06/16/21 06:57 Diabetes panel 06/16/21 Range/Units 06:57 Sodium 135 L (137-145) mmol/L Potassium 4.1 (3.6-5.0) mmol/L Chloride 99.8 (98-107) mmol/L Carbon Dioxide 25 (22-30) mmol/L BUN 8 (7-17) mg/dL Creatinine 0.7 (0.6-1.2) mg/dL Glucose 96 (65-100) mg/dL Calcium 9.2 (8.4-10.2) mg/dL AST 65 H (5-40) units/L ALT 167 H (7-56) units/L Alkaline Phosphatase 114 (35-129) units/L Total Protein 6.2 L (6.3-8.2) g/dL Albumin 3.6 L (3.9-5) g/dL Calcium panel 06/16/21 Range/Units 06:57 Calcium 9.2 (8.4-10.2) mg/dL Albumin 3.6 L (3.9-5) g/dL Pituitary panel 06/16/21 Range/Units 06:57 Sodium 135 L (137-145) mmol/L Potassium 4.1 (3.6-5.0) mmol/L Chloride 99.8 (98-107) mmol/L Carbon Dioxide 25 (22-30) mmol/L BUN 8 (7-17) mg/dL Creatinine 0.7 (0.6-1.2) mg/dL Glucose 96 (65-100) mg/dL Calcium 9.2 (8.4-10.2) mg/dL Adrenal panel 06/16/21 Range/Units 06:57 Sodium 135 L (137-145) mmol/L Potassium 4.1 (3.6-5.0) mmol/L Chloride 99.8 (98-107) mmol/L Carbon Dioxide 25 (22-30) mmol/L BUN 8 (7-17) mg/dL Creatinine 0.7 (0.6-1.2) mg/dL Glucose 96 (65-100) mg/dL Calcium 9.2 (8.4-10.2) mg/dL Total Bilirubin 0.50 (0.1-1.2) mg/dL AST 65 H (5-40) units/L ALT 167 H (7-56) units/L Alkaline Phosphatase 114 (35-129) units/L Total Protein 6.2 L (6.3-8.2) g/dL Albumin 3.6 L (3.9-5) g/dL
--- NOTE | 2021-06-16 15:19 | Discharge Summary ---
Providers - Providers Date of Admission: 06/14/21 16:19 Date of discharge: 06/16/21 Attending physician: INDRA AGUDELO 06/14/21 16:04 Consult to Physician [CONS] Urgent Comment: Consulting Provider: IVETTE BAILEY Physician Instructions: Reason For Exam: gallstones with hepatomegaly Hospitalization Reason for admission: Nausea vomiting/right upper quadrant pain/symptomatic cholelithiasis Condition: Stable Pertinent studies: Abdominal ultrasound; mild hepatomegaly no obvious parenchymal disease or mass normal gallbladder contracted gallbladder full of stones Procedures: Symptomatic cholelithiasis: s/p Lap cholecystectomy Hospital course: 31-year-old female presents to the emergency room with 1 day acute onset of right upper quadrant epigastric abdominal pain with nausea and vomiting. Patient has had this pain before, last year she had a work-up and was told she had gallstones. The pain is currently improved but she says that she would like to get it removed this admission. Patient had an ultrasound today that showed a contracted gallbladder full of gallstones with a CBD measurement of 4 mm. Patient was admitted, appropriately managed, evaluated by surgeon, subsequently underwent lap cholecystectomy Patient tolerated the procedure well, started on clear liquids, advance as tolerated Today patient is comfortable, no new complaints, vital signs stable, physical examination prior to discharge no new changes Advised to advance the diet as tolerated, follow-up with surgeon in 1 to 2 weeks Stable at discharge Discharge diagnosis; -- Symptomatic cholelithiasis Current Visit: Yes Status: Acute Status post lap cholecystectomy --Acute transaminitis; due to cholelithiasis Current Visit: Yes Status: Acute Trending down --Obesity ;hypoventilation syndrome Current Visit: Yes Status: Acute Dietary modification exercise as tolerated and weight reduction Outpatient pulmonary /sleep study to rule out obstructive sleep apnea -- Morbid obesity with BMI of 50.0-59.9, adult Current Visit: Yes Status: Acute Dietary modification exercise as tolerated and weight reduction Outpatient follow-up with pulmonary for outpatient sleep study To rule out obstructive sleep apnea Disposition: TO HOME OR SELFCARE Final Discharge Diagnosis (Prints w/discharge instructions): Symptomatic cholelithiasis. s/p laparoscopic cholecystectomy. Acute transaminitis, trending down. Obesity hypoventilation syndrome. Morbid obesity; BMI 57.2 Time spent for discharge: 35 min Core Measure Documentation - Palliative Care Palliative Care/ Comfort Measures: Not Applicable - Core Measures Any of the following diagnoses?: none Exam - Constitutional Vitals: Temp Pulse Resp BP Pulse Ox 97.8 F 68 16 133/82 98 06/16/21 11:37 06/16/21 11:37 06/16/21 11:37 06/16/21 11:37 06/16/21 11:37 General appearance: Present: no acute distress, well-nourished - EENT Eyes: Present: PERRL, EOM intact - Neck Neck: Present: supple, normal ROM - Respiratory Respiratory effort: normal Respiratory: bilateral: diminished, negative: rales, rhonchi, wheezing - Cardiovascular Rhythm: regular Heart Sounds: Present: S1 & S2 - Extremities Extremities: no ischemia, No edema - Abdominal General gastrointestinal: Present: soft, non-tender, non-distended, normal bowel sounds - Integumentary Integumentary: Present: clear, warm - Musculoskeletal Musculoskeletal: strength equal bilaterally - Psychiatric Psychiatric: appropriate mood/affect, cooperative Plan Activity: no restrictions, other (Except for postop instructions per surgery) Diet: other (Full liquid diet advance as tolerated) Additional Instructions: Follow up 's office in two weeks. Can advance diet as tolerated. Pt is advised to avoid fatty foods. Pt may shower and no heavy lifting for 2 weeks. If you have any worsening symptoms contact MD or go to the emergency room as needed Follow up with: SAUD VERONICA [Other] - 7 Days IVETTE BAILEY MD [Staff Physician] - 14 Days
== END 2021-06-16 17:00 | disposition home or self-care (01) ==
LOC: ED 11:00 → 3A 16:19 → 3B-SURG 19:56
PROVIDERS: ADMIT Internal Medicine; ATTEND Internal Medicine
DX: K80.20 Calculus of gallbladder without cholecystitis without obstruction (principal); E66.2 Morbid (severe) obesity with alveolar hypoventilation; R16.0 Hepatomegaly, not elsewhere classified; R79.89 Other specified abnormal findings of blood chemistry; Z68.43 Body mass index [BMI] 50.0-59.9, adult; Z98.891 History of uterine scar from previous surgery
CPT/HCPCS: 36415; 47562; 76700; 80053; 81001; 81025; 83690; 85025; 88304; 96361; 96374; 96375; 96376; 99284; G0378; J0330; J1100; J1170; J1885; J1956; J2270; J2405; J2704; J3010; J7030